=== PATIENT | female | born 1980 | race Caucasian/White ===

== ENCOUNTER 2018-12-01 11:01 | Observation (INO) | payer BC ==
--- NOTE | 2018-11-30 22:11 | PDGENHP ---
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 ~Anandaenjoys riding horses, ranch activities, and hiking. Radha's~Bilateral~hip pain~(L>R)~started in her teens, with~some~recalled trauma or injury~(questionable coccyx fracture in youth), and with~no~previous complaints.~Anandadoes not have~a known history of hip dysplasia. She was seen by Dr. Soto in [facility] who diagnosed her with Dysplasia~and referred her to our clinic. Presentation today is of~anterior, posterior, lateral~left~hip pain anterior lateral right hip pain.~~The hip~does~wake her~at night and~does~click and catch on~her. Sitting~can be a real struggle~for her.~Anandadoes~report suffering from lower back pain episodes. Anandahas not~participated in physical therapy and has~tried other conservative measures including bilateral cortisone GT~injections (gave her about 50% relief of her overall pain with 1st injection, 2nd had no effect)~, chiropractic treatments and massage therapy.~She~has not~received sufficient symptomatic improvement. Anandahas~utilized medication for pain management, including NSAID and OTC acetaminophen.~Anandahas used medication since the pain began. Anandaunderstands that~esperanza~has a hip and pelvis problem which should be researched and wishes to get a better understanding of~her~hip status, followed by an establishment of a treatment strategy, hoping~she~would be able to get back to~her~well being active life. History: Past medical history:~~ Rheumatoid arthritis (methotrexate, humaria) Hasn't taken prednisone in 5 months~but has been taking this since childhood Relevant familial history:~Total Hip Replacements throughout family Past surgical history:~ No. Surgery Anesthesia 1 CTR bilateral general 2 Sleeve procedure (gastric excision) General~ 3 Tubal ligation general Radha~denies problematic issues with general anesthesia in the past. I have reviewed, verified and agree with the past medical, surgical, family and social history. Current Medications:~has a current medication list which includes the following prescription(s): bupropion, citalopram, levothyroxine, and zolpidem. ALLERGIES:~has No Known Allergies. Objective: Physical Examination: Anandais 4~feet~11~inches tall and weighs~200~Lbs. Anandais AAO x3; she~is well- nourished, in NAD. Skin is warm and dry. ~Breathing is non-labored. ~CV with RRR by pulse. Abdomen is soft, NTND. Currently,~she~walks with a~abnormal~antalgic gait favoring LEFT side~gait. Trendelenburg sign is~negative~and proprioception~is reduced,~both~sides. She~presents~with no~signs of joint laxity.~Beightons Score:~0 Lower spine examination is~negative~for sciatic or femoral nerve irritation with negative~SLR &~femoral stretch tests. Range of motion of the spine is normal~for flexion, extension, and rotations,~with~associated pain. Lumbar spine pain.~ Strength, Sensation and pulses are~normal -~bilaterally Ankles and knees exams are~normal~and~no~mal-alignment is evident.~ She~has~no leg length discrepancy. Thigh circumference is~symmetric~with no evidence for muscle atrophy~on both~ sides. Hip ROM (degrees): s FL ER At 90~hip FL IR At 90~hip FL AB AD EX IR Neutral hip ER Neutral hip R 105 50 15 40 0 10 35 50 L 100 45 35 35 0 10 50 20 Specific hip and pelvis tests: Impingement Test SVETLANA Roll Add. Longus R Negative +++~(SIJ) Negative +++ L +++ +++ ++ +++ Glut. Med ITB Posterior Imp R +++ 5/5 strength +++ 5/5 strength Negative L +++ 5/5 strength +++ 5/5 strength ++ Squeeze test measured~normal Bony Symphysis pubis is~pain free~to touch while concentric activity of the rectus abdominis, does not~produce pain at its insertion. HF has~pain, weakness~the left hip. Greater trochanteric burse is~painful~on both hips.~L>R Piriformis tests: FAIR is~negative,~with no~local signs of neuritis related to sciatic nerve. SIJs examination is~produces pain on~both sides~with~abnormal~SIJ~SVETLANA in relation and local tenderness.~(L>R) Hamstrings tests are~negative~functional contraction and positive~tendinopathy both hips.~(L>R) On a daily basis, the following percentages reflect~Radha's overall total pain: Deep hip:~40% GT:~55% SIJ: 5% Imaging: Radiology studies which I~have personally reviewed, analyzed and measured are below: XR: AP of the hip and pelvis: Performed in a~good~technique Coccyx to pubic symphysis distance~1~cm. 0~degrees [place]~Lines are interrupted. Minimal~Pathological signs are seen in the Symphysis Pubis.~ Minimal~Pathological signs are seen at the Ischial~tuberosity. ~ Specific measurements show: NSA~ LCE Sourcil~Angle Sharp's angle Lat. Cam Lat. Pincer C.Over~sign Head~Coverage % ATDmm R N 16 15 45 + - - 72 N L N 0 27 52 + - - 52 N Pos. wall sign ISS NAD ~~Dysplasia Comments R Negative Negative 25.2~mm +++ L Negative Negative 24.6~mm +++ Sclerosis Sup. Lat. OA Cysts Joint Space-WBZ Joint Space-Medial R Negative Negative Negative 6.9~mm 5.6~mm L Negative Negative Negative 5.3~mm 4.1~mm X Table lateral: Anterior cam lesion is~seen~on both hips. Alpha Angle: ~ Right~86~dergrees Left~72~degrees MRI shows:~large labrum with tear, some cartilage degeneration, no bone edema Impression and plan: ~ Radha~is a~37 y.o.~active female~suffering from symptomatic~Bilateral~hip pain due to Hip Dyplasia~and~Femoroacetabular impingement (MARCE) Cam type,~with~ resultant labral tear~causing significant disability to~her~and altering~her~ sport and life activities. Physical examination, imaging, and~her~story correspond with the diagnosis mentioned above. I explained that hip dysplasia is a condition wherein the hip joint has excessive play~and instability due to a variety of factors, including the depth and adequacy of the socket, the orientation of the femur bone, and ligament laxity around the hip joint. Dysplasia ranges in severity from borderline to yong, with treatment options being specific to the specific nature of the problem. Left untreated, the instability in the hip joint can cause progressive tearing of the labrum and deterioration of the surface cartilage, ultimately resulting in progressive osteoarthritis of the hip. I explained that femoroacetabular impingement (MARCE - Cam type) arises due to a bony or soft tissue conflict between the femur (ball) and acetabulum (socket) caused by an abnormality in the shape of the femoral head and neck. Over time, repetitive impingement can result in damage to the labrum and adjacent surface cartilage within the socket, ultimately giving rise to progressive osteoarthritis of the hip. I explained that although a labral tear can be a source of pain, it is rarely the root of the problem and typically occurs secondary to an underlying abnormality in the shape and mechanics of the hip joint. I reviewed conservative treatment options for Dysplasia and MARCE including activity modification to avoid positions of impingement or instability, physical therapy, non-steroidal anti-inflammatory medications, and various injections (corticosteroid and PRP) aimed at reducing inflammation in the hip joint or/and preventing dynamic instability and impingement. PRP injections may promote healing and reduce symptoms in certain cases but it will not repair chronically damaged tissue. Although these measures may help to buy time~and reduce current level of symptoms, they are not a definitive solution to the problem given the underlying abnormality in the shape of the hip joint. Patients who have failed conservative management and continue to experience symptoms are candidates for definitive surgical treatment, which may consist of hip arthroscopy alone or in combination with more invasive bony realignment procedures of the hip socket and/or femur called periacetabular osteotomy (YIN) or derotational femoral osteotomy (DFO). Hip arthroscopy typically includes treating the labrum with either repair or reconstruction of the torn labrum; as well as addressing the underlying abnormalities by restoring the normal shape to the hip joint. If the cartilage is damaged a Microfracture surgical procedure may also be necessary to help stimulate the growth of fibrocartilage. If a patient requires a labral reconstruction or a Microfracture, the initial rehabilitation from the surgery may take longer, but the mounting inspector results are typically favorable. I reviewed the technical aspects of periacetabular osteotomy (YIN) including risks, benefits, and expected course of recovery.~Radha~understands that YIN is an inpatient procedure carried out through two medium sized incisions on the front and back of the hip joint. The hip socket is cut, realigned, and stabilized with 2 3 internal screws. Risks include infection, bleeding, injury to nearby nerves or vessels, stiffness, persistent pain, instability, failure of bony healing, implant related complications, and venous thromboembolic disease. Rarely, revision surgery may be required to address these problems. Risks, potential complications, side effects and recovery from surgical procedure were discussed in length. We explained how this surgery is an open procedure, and though patients tend to do well in the long-term, it involves significant pain in the first 2-4 weeks post-op and a rather lengthy rehab.~Overall recovery takes approximately 6 12~months depending on the extent of damage and degree of repair. Radha~understands that she~will undergo hip arthroscopy 1 week prior to the YIN to address damage inside the hip joint. Radha~understands that hip arthroscopy and YIN are two separate procedures that are best performed one week apart, with the arthroscopy commencing first to "tighten up" any pathology evident in the hip joint (labral repair, etc.) and the YIN open procedure occurring 7-10 days later to realign the acetabulum. Radha~will review the info presented. In order to obtain more detailed information regarding the alignment, orientation, and shape of the bony hip and pelvis I will order a CT scan to be performed. The results of the CT scan, including femoral torsion and acetabular version measured values and 3D images, will aid me in deciding on the best treatment strategy and surgical pre-planning. In order to better evaluate the soft tissues and cartilage of the hip joint, I will order an MRI scan. She understands that if she wants to peruse Hip Preservation surgery she will need to bring her BMI to around 30.~ Radha~will contact us if she~wishes to pursue further treatment in the future. Anandais happy with this plan. I have also supplied~her~with handouts, outlining the expected surgical treatment and rehab involved. I wish~Radha~all the best, ~~ Tamir Jefferson, PAC History Information - Allergies/Home Medication List Allergies/Adverse Reactions: almond Allergy (Verified 11/21/18 13:54) FROM ALLERGY TESTING Home Medications: Citalopram Hydrobromide [Citalopram HBr] 40 mg PO DAILY 11/21/18 [Last Taken Unknown] Folic Acid [Folic Acid 1 MG (*)] 3 mg PO DAILY 11/21/18 [Last Taken Unknown] Herbals/Supplements -Info Only 1 tab PO DAILY 11/21/18 [Last Taken Unknown] Leucovorin [Leucovorin 5 MG (*)] 5 mg PO TH@11/21/18 [Last Taken Unknown] Levothyroxine [Synthroid 25 mcg (*)] 25 mcg PO DAILY06 11/21/18 [Last Taken Unknown] Methotrexate Sodium [Rheumatrex 2.5 mg (RX)] 12.5 mg PO TU@11/21/18 [Last Taken Unknown] Zolpidem Tartrate [Ambien 5MG (*)] 2.5 - 5 mg PO HS PRN 11/21/18 [Last Taken Unknown] buPROPion XL [Wellbutrin Xl] 150 mg PO DAILY 11/21/18 [Last Taken Unknown] I have personally reviewed and updated: medical history - Social History Smoking Status: Never smoked Review of Systems Review of Systems: Physical Exam Physical Exam:
[2018-12-01] MEDS ORDERED: ACETAMINOPHEN 500 MG TAB PO ONE (11:10)
[2018-12-01] MEDS ORDERED: PREGABALIN 150 MG CAP PO ONE (11:10)
[2018-12-01] MEDS ORDERED: ceFAZolin 2 GM/DEXTROSE 100 ML IV ONE (11:10)
[2018-12-01] MEDS ORDERED: LR 1,000 ML IV ONE (11:11)
[2018-12-01] MEDS ORDERED: BUPIVACAINE 0.25% 30 ML SDV ONE (12:42)
[2018-12-01] MEDS ORDERED: EPINEPHrine 30 MG/30 ML MDV (0.1 MG/0.1 ML) ONE (12:42)
[2018-12-01] MEDS ORDERED: MIDAZOLAM 2 MG/2 ML VIAL IVP ONE (14:53)
--- NOTE | 2018-12-01 14:53 | PDANEPAE ---
ANE History of Present Illness 37 yo for hip scope ANE Past Medical History - Cardiovascular History Hx Hypertension: No Hx Arrhythmias: No Hx Chest Pain: No Hx Coronary Artery / Peripheral Vascular Disease: No Hx CHF / Valvular Disease: No Hx Palpitations: No - Pulmonary History Hx COPD: No Hx Asthma/Reactive Airway Disease: No Hx Recent Upper Respiratory Infection: No Hx Oxygen in Use at Home: No Hx Sleep Apnea: No Sleep Apnea Screening Result - Last Documented: Positive Pulmonary History Comment: DX RAZ RECOMMENDED C-PAP HAS NOT USED STUDY DONE 2010. ASTHMA TRIGGERS ENVIRONMENTAL/SEASONAL ALLERGIES HAS NOT USED INHALER FOR 4 MONTHS - Neurologic History Hx Cerebrovascular Accident: No Hx Seizures: No Hx Dementia: No - Endocrine History Hx Diabetes: No Endocrine History Comment: HYPOTHYROID - Renal History Hx Renal Disorders: No - Liver History Hx Hepatic Disorders: No - Neurological & Psychiatric Hx Hx Neurological and Psychiatric Disorders: Yes Neurological / Psychiatric History Comment: DEPRESSION - Cancer History Hx Cancer: No - Congenital Disorder History Hx Congenital Disorders: Yes Congenital History Comment: CONGENITAL HIP IMPINGEMENT - GI History Hx Gastrointestinal Disorders: No - Other Health History Other Health History: RHEUMATOID ARTHRITIS DX AGE 15. CURRENTLY STATES NO ISSUES WITH FLEXION/EXTENSTION OR ROTATION. MISSING TEETH - Chronic Pain History Chronic Pain: Yes (BREANA HIP) - Surgical History Prior Surgeries: TUBAL LIGATION. GASTRIC BYPASS SLEEVE 2010. BREANA CARPAL TUNNEL ANE Review of Systems Review of Systems: - Exercise capacity METS (RN): 4 METS ANE Patient History - Allergies Allergies/Adverse Reactions: almond Allergy (Verified 11/21/18 13:54) FROM ALLERGY TESTING - Home Medications Home medications: home medication list seen and reviewed Home Medications: Citalopram Hydrobromide [Citalopram HBr] 40 mg PO DAILY 11/21/18 [Last Taken ] Folic Acid [Folic Acid 1 MG (*)] 3 mg PO DAILY 11/21/18 [Last Taken 12/01/18] Herbals/Supplements -Info Only 1 tab PO DAILY 11/21/18 [Last Taken 12/01/18] Leucovorin [Leucovorin 5 MG (*)] 5 mg PO TH@09 11/21/18 [Last Taken 11/27/18] Levothyroxine [Synthroid 25 mcg (*)] 25 mcg PO DAILY06 11/21/18 [Last Taken ] Methotrexate Sodium [Rheumatrex 2.5 mg (RX)] 12.5 mg PO TU@09 11/21/18 [Last Taken 12/01/18] Zolpidem Tartrate [Ambien 5MG (*)] 2.5 - 5 mg PO HS PRN 11/21/18 [Last Taken ] buPROPion XL [Wellbutrin Xl] 150 mg PO DAILY 11/21/18 [Last Taken 12/01/18 09:00 ] - NPO status NPO Since - Liquids (Date): 12/01/18 NPO Since - Liquids (Time): 09:00 NPO Since - Solids (Date): 11/30/18 NPO Since - Solids (Time): 22:00 - Smoking Hx Smoking Status: Never smoked ANE Labs/Vital Signs - Vital Signs Blood Pressure: 113/82 Heart Rate: 70 Respiratory Rate: 16 O2 Sat (%): 113 Height: 4 ft 11.5 in Weight: 92.533 kg ANE Physical Exam - Airway Neck exam: FROM Mallampati Score: Class 2 Mouth exam: normal dental/mouth exam - Pulmonary Pulmonary: no respiratory distress - Cardiovascular Cardiovascular: regular rate and rhythym - ASA Status ASA Status: III ANE Anesthesia Plan Anesthesia Plan: general endotracheal anesthesia
[2018-12-01] MEDS ORDERED: fentaNYL 250 MCG/5 ML INJ ONE (15:40)
[2018-12-01] MEDS ORDERED: PROPOFOL/EMULSION 500 MG/50 ML BOTTLE IV ONE (15:41)
[2018-12-01] MEDS ORDERED: DEXAMETHASONE 4 MG/ML VIAL ONE (15:41)
[2018-12-01] MEDS ORDERED: ROCURONIUM 100 MG/10 ML VIAL ONE (15:41)
--- NOTE | 2018-12-01 17:41 | POSTOPPROG ---
Post Op Note Date of Operation: 12/01/18 Surgeon: Hong Chu Windows Software Developer: Dr. Minaya Anesthesia: GET(General Endotracheal) Pre-op Diagnosis: LEFT MARCE Post-op Diagnosis: LEFT MARCE Procedure: Left Hip arthroscopy Inf/Abcess present in the surg proc area at time of surgery?: No
[2018-12-01] MEDS ORDERED: SUGAMMADEX SODIUM 200 MG/2 ML VIAL IVP ONE (19:11)
[2018-12-01] MEDS ORDERED: ONDANSETRON 4 MG/2 ML VIAL ONE (19:12)
[2018-12-01] MEDS ORDERED: KETOROLAC 30 MG/1 ML SDV ONE (19:13)
[2018-12-01] MEDS ORDERED: oxyCODONE IR 5 MG TAB PO PRN (19:32)
[2018-12-01] MEDS ORDERED: NALOXONE HCL 0.4 MG/ML INJ IVP PRN (19:32)
[2018-12-01] MEDS ORDERED: ONDANSETRON 4 MG/2 ML VIAL IVP PRN ×2 (19:32→20:20)
[2018-12-01] MEDS ORDERED: fentaNYL 100 MCG/2 ML INJ ONE (19:43)
[2018-12-01] MEDS ORDERED: HYDROmorphONE/DILAUDID 2 MG/ML INJ ONE (19:43)
[2018-12-01] MEDS: fentaNYL 100 MCG/2 ML INJ IVP PRN ×2 (19:45→19:51)
[2018-12-01] MEDS: HYDROmorphONE/DILAUDID 2 MG/ML INJ IVP PRN ×4 (20:02→20:35)
[2018-12-01] MEDS ORDERED: HYDROmorphONE/DILAUDID 1 MG/ML INJ IVP PRN (20:20)
[2018-12-01] MEDS ORDERED: PROMETHAZINE HCL 25 MG/ML INJ IVP PRN (20:20)
[2018-12-01] MEDS ORDERED: ONDANSETRON DISINTEGRATING 4 MG TAB PO PRN (20:20)
[2018-12-01] MEDS ORDERED: ZOLPIDEM TARTRATE 5 MG TAB PO PRN (20:28)
[2018-12-01] MEDS ORDERED: DIAZEPAM 5 MG/ML 1 ML SYR ONE (20:41)
[2018-12-01] MEDS ORDERED: DIAZEPAM 5 MG/ML 1 ML SYR IVP PRN (20:42)
[2018-12-01] MEDS ORDERED: DIAZEPAM 5 MG/ML 1 ML SYR IVP ONE (20:45)
[2018-12-02] MEDS: DIAZEPAM 2 MG TAB PO PRN ×2 (01:05→06:57)
[2018-12-02] MEDS: oxyCODONE IR 5 MG TAB PO PRN ×3 (04:30→13:39)
[2018-12-02] MEDS ORDERED: LEVOTHYROXINE 25 MCG TAB PO SCH (06:00)
--- NOTE | 2018-12-02 07:05 | POSTANESTH ---
Post Anesthetic Evaluation Cardiovascular Status: Normal, Stable Respiratory Status: Normal, Stable Level of Consciousness/Mental Status: Can Participate in Eval Pain Control: Adequate, Prn Tx Ordered, Inadeq, Add Tx Required Nausea/Vomiting Control: Adequate, Prn Tx Ordered Complications Possibly Related to Anesthesia: None Noted
[2018-12-02] MEDS ORDERED: CITALOPRAM 20 MG TAB PO SCH (09:00)
[2018-12-02] MEDS ORDERED: buPROPion XL 150 MG TAB PO SCH (09:00)
[2018-12-02] MEDS ORDERED: METHOTREXATE 2.5 MG TAB PO SCH (09:00)
[2018-12-02] MEDS ORDERED: FOLIC ACID 1 MG TAB PO SCH (09:00)
--- NOTE | 2018-12-02 09:54 | ASMTLACE ---
[facility] Length of stay for Answers: 1 day current admission Acuity / Level of Answers: No Care: Did the patient have an inpatient admission? Comorbidities - select Answers: Opioid dependence all that apply / Chronic pain Other Notes: Hypothyroid # of Emergency department Answers: 0 visits in the last 6 months Social determinants Answers: Mental health diagnosis (anxiety, depression, pers onality disorders, etc.) Score: 9 Date Signed: 12/02/2018 09:54 AM Electronically Signed By:mEily Moreno RN
--- NOTE | 2018-12-02 09:56 | ASMTDCNOTE ---
Case Management Discharge Discharge Order Complete? Answers: Yes Patient to Obtain Answers: Independently Medications Transportation Arranged Answers: Family/Friends Discharge Comments Notes: Patient discharged independently. Will drive back to [place] w her . No CM needs Date Signed: 12/02/2018 09:55 AM Electronically Signed By:Emily Moreno RN
[2018-12-04] MEDS ORDERED: LEUCOVORIN 5 MG TAB PO SCH (09:00)
== END 2018-12-02 14:23 | disposition home or self-care (01) ==
LOC: FSGY 11:01 → F3N 20:21 → UNDOADMOB 20:21 → F3E 20:21
PROVIDERS: ADMIT Orthopaedic Surgery Sports Medicine; ATTEND Orthopaedic Surgery Sports Medicine
PROC: 0SQB4ZZ Repair Left Hip Joint, Percutaneous Endoscopic Approach (ICD-10-PCS; principal; 2018-12-01 13:30)
PROC: 0SBB4ZZ Excision of Left Hip Joint, Percutaneous Endoscopic Approach (ICD-10-PCS; principal; 2018-12-01 13:30)
PROC: BQ111ZZ Fluoroscopy of Left Hip using Low Osmolar Contrast (ICD-10-PCS; principal; 2018-12-01 13:30)
DX: M25.852 Other specified joint disorders, left hip (principal); Q65.89 Other specified congenital deformities of hip; M16.12 Unilateral primary osteoarthritis, left hip; M65.88 Other synovitis and tenosynovitis, other site; M76.02 Gluteal tendinitis, left hip; M53.3 Sacrococcygeal disorders, not elsewhere classified; M06.9 Rheumatoid arthritis, unspecified; E66.9 Obesity, unspecified; Z68.39 Body mass index [BMI] 39.0-39.9, adult; G47.33 Obstructive sleep apnea (adult) (pediatric); E03.9 Hypothyroidism, unspecified; F32.9 Major depressive disorder, single episode, unspecified; Z98.84 Bariatric surgery status
CPT/HCPCS: 29914; 29916; 97116; 97161; G0378; C1713; J0171; J0690; J1100; J1170; J1885; J2250; J2405; J2704; J3010; J3360